=== PATIENT | female | born 1965 | race Caucasian/White ===

== ENCOUNTER 2023-10-05 12:59 | Outpatient (CLI) | payer OTHER ==
--- NOTE | 2023-10-05 15:11 | MRI Report ---
PROCEDURE: Lumbar Spine WO INDICATIONS: ANESTHESIA OF SKIN TECHNIQUE: Noncontrast sagittal T1 spin echo and T2 fast echo, sagittal STIR, axial T1 and T2 fast spin echo thr ough the lumbar spine. In cases with scoliosis, additional coronal T2 fast spin echo may be performe d. COMPARISON: None. FINDINGS: Image quality: Excellent. Alignment and Curvature: There is normal bony alignment. Bone Marrow: Marrow is of normal overall signal. No acute vertebral body compression fractures. Spinal Cord: Conus medullaris terminates at the L1 level. Visualized cord demonstrates normal signa l and size. Paraspinous Soft Tissues: No paravertebral masses. T12-L1: Normal in appearance. L1-L2: Normal in appearance. L2-L3: Loss of disc signal. Mild, diffuse disc bulge. Mild bilateral facet hypertrophy. Mild narro wing of the central canal. Mild bilateral neural foraminal narrowing. No neural compression. L3-L4: Loss of disc signal. Mild, diffuse disc bulge. Mild bilateral facet hypertrophy. Mild narrow ing of the central canal. Mild bilateral neural foraminal narrowing. No neural compression. L4-L5: Slight loss of disc signal. Mild bilateral facet hypertrophy. No central stenosis. Mild righ t neural foraminal narrowing. No neural compression. L5-S1: Disc has a normal appearance. Mild bilateral facet hypertrophy. No central stenosis. Mild bi lateral neural foraminal narrowing. No neural compression. IMPRESSION: Mild multilevel degenerative disc disease. Mild multilevel facet arthropathy. No severe central canal stenosis. No severe neural foraminal narrowing. No neural compression. Reviewed by: Yazmin Akhtar MD, PhD on 10/05/2023 3:10 PM PDT Approved by: Yazmin Akhtar MD, PhD on 10/05/2023 3:10 PM PDT Station ID: [id number]
== END 2023-10-05 13:00 | disposition home or self-care (01) ==
LOC: DI 12:59
PROVIDERS: ATTEND Student in an Organized Health Care Education/Training Program
DX: R20.0 Anesthesia of skin (principal); M51.36 Other intervertebral disc degeneration, lumbar region; M47.816 Spondylosis without myelopathy or radiculopathy, lumbar region